=== PATIENT | male | born 1970 | race African-American/Black ===

== ENCOUNTER 2021-03-06 17:40 | Emergency (ER) | payer OTHER ==
[~2021-03-06] VITALS: Ht 180.3 cm; Wt 83.9 kg
[2021-03-06 17:41] VITALS: BP 127/64
[2021-03-06] MEDS ORDERED: NORFLEX100 MG PO (18:13)
== END 2021-03-06 18:21 | disposition home or self-care (01) ==
LOC: ER 17:40
DX: M54.2 Cervicalgia (principal); M19.90 Unspecified osteoarthritis, unspecified site